=== PATIENT | male | born 1980 | race Caucasian/White ===

== ENCOUNTER → 2021-09-25 15:18 | Outpatient (BNVA) | payer BC, SELFPAY | PROVIDERS: PCP Physician Assistant Medical; Visit Provider Urology ==

== ENCOUNTER 2022-01-24 | Outpatient (REF) | payer BC, SELFPAY | END 2022-01-24 00:01 | disposition home or self-care (01) | LOC: CF | PROVIDERS: Visit Provider Urology | DX: Z30.2 Encounter for sterilization (principal); F41.8 Other specified anxiety disorders | CPT/HCPCS: 55250 ==